=== PATIENT | female | born 1975 | race Caucasian/White ===

== ENCOUNTER 2023-07-08 09:06 | Day surgery (SDC) | payer MEDICAID, OTHER ==
[~2023-07-08] VITALS: Ht 167.6 cm; Wt 149.7 kg
[~2023-07-08 09:06] MED LIST: CALC-940 PO; FAMO-132 PO; MULT-1200 PO
[2023-07-08 11:10] VITALS: O2SAT 99
[2023-07-08] MEDS ORDERED: MEPERIDINE 100 MG INJ. 100 MG/ML VIAL ONE ×2 (11:10→11:19)
[2023-07-08] MEDS ORDERED: MIDAZOLAM HCL 5 MG/5 ML VIAL ONE ×2 (11:10→11:20)
[2023-07-08] MEDS ORDERED: BENZOCAINE 20% 0.5mL UD SPRAY MM ONE (11:10)
[2023-07-08] MEDS ORDERED: DIPHENHYDRAMINE INJ 50 MG/ML VIAL ONE (11:19)
[2023-07-08] MEDS ORDERED: ONDANSETRON HCL 4 MG/2 ML VIAL ONE (11:31)
[2023-07-08 14:01] VITALS: BP_SYST 134; PULSE 75; RESP 16
== END 2023-07-08 12:50 | disposition home or self-care (01) ==
LOC: SDS 09:06
PROVIDERS: ATTEND Internal Medicine
DX: Z08 Encounter for follow-up examination after completed treatment for malignant neoplasm (principal); K29.50 Unspecified chronic gastritis without bleeding; K29.80 Duodenitis without bleeding; K64.8 Other hemorrhoids; Z85.038 Personal history of other malignant neoplasm of large intestine; E66.01 Morbid (severe) obesity due to excess calories; Z90.49 Acquired absence of other specified parts of digestive tract; Z98.84 Bariatric surgery status; Z90.710 Acquired absence of both cervix and uterus; Z79.899 Other long term (current) drug therapy; Z68.43 Body mass index [BMI] 50.0-59.9, adult
CPT/HCPCS: 45380; 45386; 43239; 99152; 88305; 88312; 88313; 99153; G0378; J1200; J2250; J2405; J2175